=== PATIENT | male | born 1980 | race African-American/Black ===

== ENCOUNTER 2018-03-25 07:06 | Emergency (ER) | payer MEDICAID ==
[~2018-03-25] VITALS: Ht 175.3 cm; Wt 92.8 kg
[2018-03-25] MEDS ORDERED: SODIUM CHLORIDE 0.9% 1,000 ML IV ONE (09:00)
[2018-03-25] MEDS ORDERED: DICYCLOMINE 10 MG/5 ML ORAL SYR PO STA (09:00)
[2018-03-25 09:39] LABS: CHLORIDE 101 mEq/L (98-107)
[2018-03-25 09:42] LABS: BASOPHILS % 0.3 % (0.0-2.0); HEMATOCRIT. 47.3 % (42.0-52.0); HEMOGLOBIN. 15.5 g/dL (14.0-18.0); LYMPHOCYTES % 25.5 % (20.0-50.0); MEAN CORPUSCULAR VOLUME 82.3 fL (80.0-94.0); MONOCYTES % 6.3 % (2.0-8.0); NEUTROPHILS % 66.9 % (40.0-76.0); PLATELET 317 x1000/uL (130-400); RED BLOOD CELL COUNT 5.75 mill/uL (4.7-6.1); RED CELL DISTRIBUTION WIDTH 13.4 % (11.6-14.6)
[2018-03-25 10:13] VITALS: BP 125/61
== END 2018-03-25 10:41 | disposition home or self-care (01) ==
LOC: ER 07:06
DX: R19.7 Diarrhea, unspecified (principal); R06.02 Shortness of breath; F17.210 Nicotine dependence, cigarettes, uncomplicated; F12.90 Cannabis use, unspecified, uncomplicated; R03.0 Elevated blood-pressure reading, without diagnosis of hypertension
CPT/HCPCS: 36415; 80053; 85025; 96360; 99283; J7030

== ENCOUNTER 2019-05-05 17:48 | Emergency (ER) | payer MEDICAID ==
[~2019-05-05] VITALS: Ht 175.3 cm; Wt 93.0 kg
[2019-05-05 21:02] VITALS: BP 155/94
== END 2019-05-05 21:50 | disposition home or self-care (01) ==
LOC: ER 17:48
DX: R06.4 Hyperventilation (principal); R55 Syncope and collapse; I10 Essential (primary) hypertension; F12.90 Cannabis use, unspecified, uncomplicated
CPT/HCPCS: 71045; 82962; 93005; 99283